=== PATIENT | female | born 1995 | race Two or more races ===

== ENCOUNTER 2020-10-21 15:34 | Outpatient (CLI) | payer OTHER | END 2020-10-22 10:30 | disposition home or self-care (01) | LOC: OBS/DEL 15:34 | PROVIDERS: ATTEND Specialist | DX: O26.893 Other specified pregnancy related conditions, third trimester (principal); R10.2 Pelvic and perineal pain; M54.5 Low back pain ==

== ENCOUNTER 2020-12-21 14:15 | Inpatient (IN) | payer OTHER ==
[~2020-12-21] VITALS: Ht 160 cm; Wt 97.1 kg
[2021-01-05] MEDS ORDERED: PRENATAL CAPLE1 EAC1 PO (07:52)
[2021-01-08] MEDS ORDERED: SIMETHICONE125 M1 PO (07:30)
[2021-01-08] MEDS ORDERED: IBUPROFEN800 MG PO (07:30)
[2021-01-08] MEDS ORDERED: PRENATAL CAPLE1 EAC1 PO (07:30)
[2021-01-08] MEDS ORDERED: DOCUSATE SODIU100 MG PO (07:30)
== END 2021-01-08 14:07 | disposition home or self-care (01) | DRG 788 ==
LOC: LDR 01-05 05:52 → OB/GYN 01-05 05:52
PROVIDERS: ADMIT Specialist; ATTEND Specialist
PROC: 10907ZC Drainage of Amniotic Fluid, Therapeutic from Products of Conception, Via Natural or Artificial Opening (ICD-10-PCS; 2021-01-05)
PROC: 3E033VJ Introduction of Other Hormone into Peripheral Vein, Percutaneous Approach (ICD-10-PCS; 2021-01-05)
PROC: 4A1HXFZ Monitoring of Products of Conception, Cardiac Rhythm, External Approach (ICD-10-PCS; 2021-01-05)
PROC: 10D00Z1 Extraction of Products of Conception, Low, Open Approach (ICD-10-PCS; principal; 2021-01-05 14:00)
DX: O65.9 Obstructed labor due to maternal pelvic abnormality, unspecified (principal); Z3A.39 39 weeks gestation of pregnancy; Z37.0 Single live birth; Z20.822 Contact with and (suspected) exposure to COVID-19